=== PATIENT | female | born 1995 | race Caucasian/White ===

== ENCOUNTER 2016-09-16 07:35 | Inpatient (IN) | payer OTHER ==
[~2016-09-16] VITALS: Ht 160 cm; Wt 66.2 kg
[2016-09-16] MEDS ORDERED: RINGERS SOLUTION,LACTATED 1,000 ML IV PRN (09:03)
[2016-09-16] MEDS ORDERED: OXYTOCIN 30 UNITS/LACT RINGERS 500 ML IV ONE (09:03)
[2016-09-16 09:11] VITALS: BP 118/73
[2016-09-16] MEDS ORDERED: CITRIC ACID/SODIUM CITRATE 30 ML SOLUTION UDCUP PO PRN (09:15)
[2016-09-16] MEDS ORDERED: METOCLOPRAMIDE HCL 5 MG/ML 2 ML VIAL IVP PRN (09:15)
[2016-09-16] MEDS ORDERED: FentaNYL CITRATE-PF 100 MCG/2 ML VIAL IVP PRN (09:15)
[2016-09-16 09:35] LABS: BASOPHILS % (AUTO) 0.3 % (0.0-2.0); EOSINOPHILS % (AUTO) 0.4 % (1.0-6.0); HEMATOCRIT 36.2 % (36-46); LYMPHOCYTES % (AUTO) 18.6 % (22.0-44.0); MEAN CORPUSCULAR HEMOGLOBIN 31.7 pg (26.0-34.0); MEAN CORPUSCULAR HGB CONC 33.1 G/dL (31.0-37.0); MEAN CORPUSCULAR VOLUME 96 fL (80-100); MONOCYTES # (AUTO) 0.8 K/uL (0.1-1.0); MONOCYTES % (AUTO) 7.2 % (2.0-9.0); NEUTROPHILS # (AUTO) 7.8 K/uL (1.8-7.7); NEUTROPHILS % (AUTO) 73.5 % (40.0-70.0); RED BLOOD CELL COUNT(AUTO) 3.79 MIL/uL (4.00-5.20); RED CELL DISTRIBUTION WIDTH 13.9 % (11.5-14.5); WHITE BLOOD COUNT (AUTO) 10.6 K/uL (4.5-11.0)
[2016-09-16] MEDS: RINGERS SOLUTION,LACTATED 1,000 ML IV SCH ×2 (09:56→13:33)
[2016-09-16] MEDS ORDERED: FentaNYL/BUPIV 0.125%/NS/PF 200 ML ED ONE (10:23)
[2016-09-16] MEDS ORDERED: FentaNYL/BUPIV 0.125%/NS/PF 200 ML ED PRN (11:35)
[2016-09-16] MEDS ORDERED: DiphenhydrAMINE HCL 50 MG/ML VIAL IVP PRN (11:45)
[2016-09-16] MEDS ORDERED: ONDANSETRON HCL 4 MG/2 ML VIAL IVP PRN (11:45)
[2016-09-16] MEDS ORDERED: RINGERS SOLUTION,LACTATED 1,000 ML IV ONE (14:39)
[2016-09-16] MEDS ORDERED: BENZOCAINE 20%/MENTHOL 56 GM SPRAY CANISTER TP PRN (14:45)
[2016-09-16] MEDS ORDERED: GLYCERIN/WITCH HAZEL LEAF 40 PADS JAR TP PRN (14:45)
[2016-09-16] MEDS ORDERED: OxyCODONE HCL/ACETAMINOPHEN 5-325 MG TABLET PO PRN ×2 (14:45)
[2016-09-16] MEDS ORDERED: MEASLES/MUMPS/RUBELLA VACCINE, LIVE 0.5 ML/VIAL SQ ONE (14:45)
[2016-09-16] MEDS ORDERED: LANOLIN 7 GM OINTMENT TP PRN (14:45)
[2016-09-16] MEDS ORDERED: INFLUENZA VIRUS VACCINE QVS 2016-17 (3YR+)/PF 60 MCG/0.5 ML SYRINGE IM ONE (16:00)
[2016-09-16] MEDS: IBUPROFEN 600 MG TABLET PO PRN (16:06)
[2016-09-16] MEDS ORDERED: OXYGEN THERAPY IH SCH (20:00)
[2016-09-16] MEDS: MAGNESIUM HYDROXIDE SUSPENSION 30 ML UDCUP PO SCH (21:21)
[2016-09-17 05:46] LABS: BASOPHILS % (AUTO) 0.2 % (0.0-2.0); HEMATOCRIT 34.3 % (36-46); HEMOGLOBIN 11.1 g/dL (12.0-16.0); LYMPHOCYTES # (AUTO) 2.8 K/uL (1.0-4.8); LYMPHOCYTES % (AUTO) 20.7 % (22.0-44.0); MEAN CORPUSCULAR HEMOGLOBIN 31.4 pg (26.0-34.0); MEAN CORPUSCULAR HGB CONC 32.3 G/dL (31.0-37.0); MEAN CORPUSCULAR VOLUME 97 fL (80-100); MONOCYTES # (AUTO) 1.2 K/uL (0.1-1.0); MONOCYTES % (AUTO) 8.9 % (2.0-9.0); NEUTROPHILS # (AUTO) 9.5 K/uL (1.8-7.7); NEUTROPHILS % (AUTO) 69.2 % (40.0-70.0); RED BLOOD CELL COUNT(AUTO) 3.52 MIL/uL (4.00-5.20); RED CELL DISTRIBUTION WIDTH 13.9 % (11.5-14.5); WHITE BLOOD COUNT (AUTO) 13.7 K/uL (4.5-11.0)
[2016-09-17] MEDS: IBUPROFEN 600 MG TABLET PO PRN (08:16)
[2016-09-17] MEDS: MAGNESIUM HYDROXIDE SUSPENSION 30 ML UDCUP PO SCH (08:17)
[2016-09-17] MEDS ORDERED: IBUP-2070 PO (10:49)
[2016-09-17] MEDS ORDERED: PREN-154 PO (10:52)
[2016-09-17] MEDS ORDERED: DSS100 PO (10:53)
== END 2016-09-17 14:45 | disposition home or self-care (01) | DRG 560 ==
LOC: 4S 07:35 → OBSVTOIN 07:35
PROVIDERS: ADMIT Obstetrics & Gynecology; ATTEND Obstetrics & Gynecology
PROC: 10E0XZZ Delivery of Products of Conception, External Approach (ICD-10-PCS; principal; 2016-09-16)
PROC: 10907ZC Drainage of Amniotic Fluid, Therapeutic from Products of Conception, Via Natural or Artificial Opening (ICD-10-PCS; 2016-09-16)
PROC: 4A1HXCZ Monitoring of Products of Conception, Cardiac Rate, External Approach (ICD-10-PCS; 2016-09-16)
PROC: 3E0S3CZ (ICD-10-PCS; 2016-09-16)
PROC: 00HU33Z Insertion of Infusion Device into Spinal Canal, Percutaneous Approach (ICD-10-PCS; 2016-09-16)
DX: O77.0 Labor and delivery complicated by meconium in amniotic fluid (principal); O76 Abnormality in fetal heart rate and rhythm complicating labor and delivery; Z3A.41 41 weeks gestation of pregnancy; Z37.0 Single live birth; Z88.0 Allergy status to penicillin; Z98.890 Other specified postprocedural states
CPT/HCPCS: 90471; J2590; J3490; J7120

== ENCOUNTER 2019-04-27 22:52 | Emergency (ER) | payer MEDICAID, OTHER ==
[~2019-04-27] VITALS: Ht 165.1 cm; Wt 60.0 kg
[~2019-04-27 22:52] MED LIST: DSS100 PO; IBUP-2070 PO; PREN-154 PO
[2019-04-27 23:19] LABS: APPEARANCE,URINE CLEAR (CLEAR); BILIRUBIN,URINE NEGATIVE (NEGATIVE); GLUCOSE, URINE (UA) NEGATIVE (NEGATIVE); KETONES,URINE TRACE mg/dL (NEGATIVE); LEUKOCYTE ESTERASE ,URINE SMALL (NEGATIVE); NITRATE,URINE NEGATIVE (NEGATIVE); OCCULT BLOOD,URINE NEGATIVE (NEGATIVE); PH,URINE 7.5 (5.0-8.0); PROTEIN,URINE NEGATIVE (NEGATIVE); UROBILINOGEN,URINE 0.2 mg/dL (<=1.0)
[2019-04-27 23:28] LABS: BASOPHILS % (AUTO) 0.3 % (0.0-2.0); HEMOGLOBIN 14.3 g/dL (12.0-16.0); LYMPHOCYTES # (AUTO) 2.3 K/uL (1.0-4.8); LYMPHOCYTES % (AUTO) 27.4 % (22.0-44.0); MEAN CORPUSCULAR HEMOGLOBIN 31.5 pg (26.0-34.0); MEAN CORPUSCULAR HGB CONC 34.8 G/dL (31.0-37.0); MEAN CORPUSCULAR VOLUME 91 fL (80-100); MONOCYTES # (AUTO) 0.7 K/uL (0.1-1.0); MONOCYTES % (AUTO) 8.7 % (2.0-9.0); NEUTROPHILS # (AUTO) 5.2 K/uL (1.8-7.7); NEUTROPHILS % (AUTO) 61.6 % (40.0-70.0); PLATELET COUNT (AUTO) 347 K/uL (150-450); RED BLOOD CELL COUNT(AUTO) 4.53 MIL/uL (4.00-5.20); RED CELL DISTRIBUTION WIDTH 12.9 % (11.5-14.5)
[2019-04-27 23:31] LABS: BACTERIA,URINE None Seen /HPF (None Seen); RBC,URINE 0-2 /HPF (0-2); SQUAMOUS EPITHELIAL CELL,UR Moderate /LPF (None Seen)
[2019-04-27 23:37] LABS: ANION GAP 8 mmol/L (8-16); CALCIUM, TOTAL 9.1 mg/dL (8.8-10.5); CARBON DIOXIDE 26 mmol/L (22-29); CHLORIDE 102 mmol/L (98-107); CREATININE 0.72 mg/dL (0.60-1.30); GLOMERULAR FILTR. RATE CALC > 60 mL/min (>60); GLUCOSE,RANDOM 86 mg/dL (70-110); POTASSIUM 4.1 mmol/L (3.5-5.1); SODIUM SERUM 136 mmol/L (136-145); UREA NITROGEN, BLOOD 10 mg/dL (7-18)
[2019-04-28 00:04] LABS: ALANINE AMINOTRANSFERASE 12 U/L (12-78); ALKALINE PHOSPHATASE 48 U/L (46-116); AMYLASE 74 U/L (25-115); ASPARTATE AMINOTRANSFERASE 11 U/L (15-37); BILIRUBIN,TOTAL 0.3 mg/dL (0.1-1.0); HCG,QUANTITATIVE 120684 mIU/mL (0-6); LIPASE 192 U/L (73-393); TOTAL PROTEIN, SERUM 7.4 g/dL (6.4-8.2)
[2019-04-28 01:05] VITALS: BP 106/60
== END 2019-04-28 01:12 | disposition home or self-care (01) ==
LOC: EMS 22:53
DX: O34.81 Maternal care for other abnormalities of pelvic organs, first trimester (principal); O26.891 Other specified pregnancy related conditions, first trimester; N83.202 Unspecified ovarian cyst, left side; Z86.69 Personal history of other diseases of the nervous system and sense organs
CPT/HCPCS: 76801; 76817; 87086

== ENCOUNTER 2019-04-30 12:44 | Emergency (ER) | payer MEDICAID ==
[~2019-04-30] VITALS: Ht 165.1 cm; Wt 60.0 kg
[2019-04-30 13:23] LABS: BASOPHILS % (AUTO) 0.3 % (0.0-2.0); EOSINOPHILS % (AUTO) 2.4 % (1.0-6.0); HEMATOCRIT 38.4 % (36-46); HEMOGLOBIN 13.4 g/dL (12.0-16.0); LYMPHOCYTES # (AUTO) 1.9 K/uL (1.0-4.8); LYMPHOCYTES % (AUTO) 22.8 % (22.0-44.0); MEAN CORPUSCULAR HEMOGLOBIN 31.7 pg (26.0-34.0); MEAN CORPUSCULAR VOLUME 91 fL (80-100); MONOCYTES # (AUTO) 0.6 K/uL (0.1-1.0); MONOCYTES % (AUTO) 7.6 % (2.0-9.0); NEUTROPHILS # (AUTO) 5.7 K/uL (1.8-7.7); NEUTROPHILS % (AUTO) 66.9 % (40.0-70.0); PLATELET COUNT (AUTO) 313 K/uL (150-450); RED BLOOD CELL COUNT(AUTO) 4.23 MIL/uL (4.00-5.20)
[2019-04-30 13:40] LABS: APPEARANCE,URINE TURBID (CLEAR); BILIRUBIN,URINE NEGATIVE (NEGATIVE); GLUCOSE, URINE (UA) NEGATIVE (NEGATIVE); KETONES,URINE TRACE mg/dL (NEGATIVE); LEUKOCYTE ESTERASE ,URINE NEGATIVE (NEGATIVE); NITRATE,URINE NEGATIVE (NEGATIVE); OCCULT BLOOD,URINE NEGATIVE (NEGATIVE); PH,URINE 5.5 (5.0-8.0); PROTEIN,URINE NEGATIVE (NEGATIVE); UROBILINOGEN,URINE 0.2 mg/dL (<=1.0)
[2019-04-30 13:50] LABS: AMORPHOUS SEDIMENT,UR Many /LPF (None Seen); BACTERIA,URINE None Seen /HPF (None Seen); RBC,URINE None Seen /HPF (0-2); SQUAMOUS EPITHELIAL CELL,UR Few /LPF (None Seen); WBC,URINE None Seen /HPF (0-5)
[2019-04-30 15:00] VITALS: BP 121/79
== END 2019-04-30 15:42 | disposition home or self-care (01) ==
LOC: EMS 12:45
DX: O26.891 Other specified pregnancy related conditions, first trimester (principal); N93.9 Abnormal uterine and vaginal bleeding, unspecified; R10.30 Lower abdominal pain, unspecified; Z3A.01 Less than 8 weeks gestation of pregnancy; Z88.0 Allergy status to penicillin; Z79.899 Other long term (current) drug therapy
CPT/HCPCS: 76801; 76817; 86901

== ENCOUNTER 2019-12-05 05:42 | Inpatient (IN) | payer OTHER ==
[~2019-12-05] VITALS: Ht 167.6 cm; Wt 69.1 kg
[~2019-12-05 05:42] MED LIST changes: -DSS100 PO; -IBUP-2070 PO
[2019-12-05 06:45] VITALS: BP 114/67
[2019-12-05] MEDS ORDERED: RINGERS SOLUTION,LACTATED 1,000 ML IV PRN (07:02)
[2019-12-05] MEDS ORDERED: RINGERS SOLUTION,LACTATED 1,000 ML IV SCH (07:02)
[2019-12-05] MEDS ORDERED: ROPIVACAINE HCL/PF 0.2% 100 ML ED ONE (07:02)
[2019-12-05] MEDS ORDERED: METOCLOPRAMIDE HCL 5 MG/ML 2 ML VIAL IVP PRN (07:15)
[2019-12-05] MEDS ORDERED: CITRIC ACID/SODIUM CITRATE 30 ML SOLUTION UDCUP PO PRN (07:15)
[2019-12-05] MEDS ORDERED: CeFAZolin 2 GM/DEXTROSE 50 ML IV SCH (07:30)
[2019-12-05] MEDS ORDERED: BUPIVACAINE HCL/PF 0.25% 10 ML VIAL ONE (07:35)
[2019-12-05] MEDS ORDERED: OXYGEN THERAPY IH SCH (08:00)
[2019-12-05] MEDS ORDERED: NALBUPHINE HCL 10 MG/ML VIAL IVP PRN (08:00)
[2019-12-05] MEDS ORDERED: ONDANSETRON HCL 4 MG/2 ML VIAL IVP PRN (08:00)
[2019-12-05] MEDS ORDERED: DiphenhydrAMINE HCL 50 MG/ML VIAL IVP PRN (08:00)
[2019-12-05] MEDS ORDERED: ROPIVACAINE HCL/PF 0.2% 100 ML ED PRN (08:00)
[2019-12-05 08:20] LABS: BASOPHILS % (AUTO) 0.2 % (0.0-2.0); EOSINOPHILS % (AUTO) 0.5 % (1.0-6.0); HEMATOCRIT 32.7 % (36-46); HEMOGLOBIN 11.1 g/dL (12.0-16.0); LYMPHOCYTES # (AUTO) 1.7 K/uL (1.0-4.8); LYMPHOCYTES % (AUTO) 16.9 % (22.0-44.0); MEAN CORPUSCULAR HEMOGLOBIN 30.9 pg (26.0-34.0); MEAN CORPUSCULAR HGB CONC 34.1 G/dL (31.0-37.0); MEAN CORPUSCULAR VOLUME 91 fL (80-100); MONOCYTES # (AUTO) 0.7 K/uL (0.1-1.0); MONOCYTES % (AUTO) 6.9 % (2.0-9.0); NEUTROPHILS # (AUTO) 7.7 K/uL (1.8-7.7); NEUTROPHILS % (AUTO) 75.5 % (40.0-70.0); PLATELET COUNT (AUTO)-OB 292 K/uL (150-450); RED CELL DISTRIBUTION WIDTH 14.1 % (11.5-14.5)
[2019-12-05] MEDS ORDERED: OXYTOCIN 30 UNITS/LACT RINGERS 500 ML IV ONE (08:44)
[2019-12-05] MEDS ORDERED: OXYTOCIN 20 UNITS/LACT RINGERS 1,000 ML IV ONE (08:44)
[2019-12-05] MEDS ORDERED: OXYTOCIN 20 UNITS/LACT RINGERS 1,000 ML IV SCH (10:13)
[2019-12-05] MEDS ORDERED: SENNA/DOCUSATE SODIUM 8.6-50 MG TABLET PO PRN (10:15)
[2019-12-05] MEDS ORDERED: MEASLES/MUMPS/RUBELLA VACCINE, LIVE 0.5 ML/VIAL SQ ONE (10:15)
[2019-12-05] MEDS ORDERED: MAGNESIUM HYDROXIDE SUSPENSION 30 ML UDCUP PO PRN (10:15)
[2019-12-05] MEDS ORDERED: ACETAMINOPHEN/CODEINE 300-30 MG TABLET PO PRN (10:15)
[2019-12-05] MEDS ORDERED: BENZOCAINE 20%/MENTHOL 56 GM SPRAY CANISTER TP PRN (10:15)
[2019-12-05] MEDS ORDERED: GLYCERIN/WITCH HAZEL LEAF 40 PADS JAR TP PRN (10:15)
[2019-12-05] MEDS ORDERED: LANOLIN 7 GM OINTMENT TP PRN (10:15)
[2019-12-05] MEDS: IBUPROFEN 600 MG TABLET PO PRN (10:24)
[2019-12-06 05:19] LABS: BASOPHILS % (AUTO) 0.6 % (0.0-2.0); EOSINOPHILS % (AUTO) 1.4 % (1.0-6.0); HEMATOCRIT 30.4 % (36-46); HEMOGLOBIN 10.3 g/dL (12.0-16.0); LYMPHOCYTES # (AUTO) 2.6 K/uL (1.0-4.8); LYMPHOCYTES % (AUTO) 20.6 % (22.0-44.0); MEAN CORPUSCULAR HEMOGLOBIN 30.6 pg (26.0-34.0); MEAN CORPUSCULAR VOLUME 90 fL (80-100); MONOCYTES # (AUTO) 0.8 K/uL (0.1-1.0); MONOCYTES % (AUTO) 6.2 % (2.0-9.0); NEUTROPHILS # (AUTO) 8.9 K/uL (1.8-7.7); NEUTROPHILS % (AUTO) 71.2 % (40.0-70.0); PLATELET COUNT (AUTO)-OB 267 K/uL (150-450); RED BLOOD CELL COUNT(AUTO) 3.38 MIL/uL (4.00-5.20); RED CELL DISTRIBUTION WIDTH 13.9 % (11.5-14.5)
[2019-12-06] MEDS: IBUPROFEN 600 MG TABLET PO PRN (12:10)
[2019-12-06] MEDS ORDERED: IBUP-2070 PO (12:16)
[2019-12-06] MEDS ORDERED: DOCU-275 PO (12:17)
== END 2019-12-06 13:45 | disposition home or self-care (01) | DRG 560 ==
LOC: OBSVTOIN 05:42 → 4S 05:42
PROVIDERS: ADMIT Obstetrics & Gynecology; ATTEND Obstetrics & Gynecology
PROC: 10E0XZZ Delivery of Products of Conception, External Approach (ICD-10-PCS; principal; 2019-12-05)
PROC: 3E0R3BZ Introduction of Anesthetic Agent into Spinal Canal, Percutaneous Approach (ICD-10-PCS; 2019-12-05)
PROC: 00HU33Z Insertion of Infusion Device into Spinal Canal, Percutaneous Approach (ICD-10-PCS; 2019-12-05)
DX: O80 Encounter for full-term uncomplicated delivery (principal); Z37.0 Single live birth; Z3A.37 37 weeks gestation of pregnancy
CPT/HCPCS: 80307; 86850; 86900; 86901; J0690; J2590; J2795; J3490